=== PATIENT | female | born 1930 | race Caucasian/White ===

== ENCOUNTER 2017-07-16 17:39 | Emergency (ER) | payer MEDICARE ==
[~2017-07-16] VITALS: Ht 160 cm; Wt 64.4 kg
[~2017-07-16 17:39] MED LIST: ALPR0.25 PO; CALC500T21 OR; CHOL1CAP6 OR; CLON.1 PO; CROM5.2S; LEVO100T4 PO; LORTA5 PO; OMEP20CA5 PO; SERT-129 PO; TOVI8TAB PO; ULTR50TA PO; ZOCO40TA PO
[2017-07-16 17:46] VITALS: BP 137/65; PULSE 71; RESP 18; TEMP 97.8; O2SAT 95
[2017-07-16] MEDS ORDERED: PRIL20TA2 PO (18:31)
[2017-07-16] MEDS ORDERED: SIMV20TA PO (18:31)
[2017-07-16] MEDS ORDERED: LEVO100T5 PO (18:31)
[2017-07-16] MEDS ORDERED: TOVI4TAB PO (18:31)
[2017-07-16] MEDS ORDERED: TRAM50TA PO (18:31)
[2017-07-16] MEDS ORDERED: SERT-129 PO (18:31)
[2017-07-16] MEDS ORDERED: VITA100036 PO (18:31)
--- NOTE | 2017-07-16 19:43 | RADRPT ---
EXAM DATE/TIME: 07/16/2017 19:11 [facility] COMPARISON: No previous studies available for comparison. EXTERNAL COMPARISON : [facility] INDICATIONS : Right arm pain. Post fall. MEDICAL HISTORY : None. SURGICAL HISTORY : None. ENCOUNTER: Initial ACUITY: 1 day PAIN SCORE: 8/10 LOCATION: Right humerus. FINDINGS: Two view examination of the right humerus demonstrates no evidence of fracture or dislocation. Bony mineralization is normal. The soft tissue structures are intact. CONCLUSION: Intact right humerus. Robert Medina MD on July 16, 2017 at 19:41 Board Certified Radiologist. This report was verified electronically.
--- NOTE | 2017-07-16 19:46 | RADRPT ---
EXAM DATE/TIME: 07/16/2017 19:18 [facility] COMPARISON: No previous studies available for comparison. EXTERNAL COMPARISON : [facility] INDICATIONS : Right shoulder pain. Post fall. MEDICAL HISTORY : None. SURGICAL HISTORY : None. ENCOUNTER: Initial ACUITY: 1 day PAIN SCORE: 8/10 LOCATION: Right shoulder. FINDINGS: No acute fracture is demonstrated of the right shoulder. There is mild acromioclavicular joint and gl enohumeral joint osteoarthritis. Increased density is seen in the subacromial compatible with calcifi c tendinitis/bursitis. CONCLUSION: 1. No fracture or subluxation of the right shoulder. 2. Mild osteoarthritis. 3. Calcific tendinitis/bursitis of the cuff. Robert Medina MD on July 16, 2017 at 19:43 Board Certified Radiologist. This report was verified electronically.
--- NOTE | 2017-07-16 20:03 | PD ---
HPI Chief Complaint: Pain: Acute or Chronic Time Seen by Provider: 18:55 Travel History International Travel<30 days: No Contact w/Intl Traveler<30days: No Traveled to known affect area: No History of Present Illness HPI 87 year-old female with a history of chronic right shoulder pain presents to the emergency room for evaluation of right shoulder and upper arm pain after falling earlier today. Patient fell out of her chair onto her right arm. She fell onto concrete but denies hitting her head or loss of consciousness. She had immediate pain but it is difficult to localize. States it is mostly in the proximal humerus but radiates into her entire upper arm. She has not taken anything for pain. She denies paresthesias. Patient reports earlier today, before the fall, she went for an MRI of her shoulder for chronic bursitis. 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 Dvce: Yes Kidney Stones: No Medical other: Yes Musculoskeletal: Yes Neurologic: Yes ( TREMORS) Psychiatric: Yes Reproductive: No Respiratory: Yes (PNEUMONIA, ASTHMA) Immunizations Current: Yes Migraines: Yes Myocardial Infarction: No Pneumonia: Yes Radiation Therapy: No Seizures: No Sleep Apnea: No Thyroid Disease: Yes (NODULES) Ulcer: No Tetanus Vaccination: Unknown Influenza Vaccination: Yes ?: Not Menopausal: Yes Past Surgical History Abdominal Surgery: Yes (APPENDECTOMY) Appendectomy: Yes Body Medical Devices: HARDWARE RIGHT WRIST Section: Yes (TIMES 3) Cholecystectomy: Yes Eye Surgery: Yes (BILATERAL CATARACT EXTRACTION) Gynecologic Surgery: Yes (HYSTERECTOMY 1982, C SECTIION X3) Hysterectomy: Yes Joint Replacement: Yes (LEFT KNEE) Tonsillectomy: Yes Other Surgery: Yes (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 ) Social History Alcohol Use: No Tobacco Use: No (QUIT 50 YEARS AGO ) Substance Use: No Allergies-Medications (Allergen,Severity, Reaction): Coded Allergies: codeine (Unverified Allergy, Severe, PT DENIES, 07/16/17) Uncoded Allergies: MUSCLE RELAXANTS (Adverse Reaction, Intermediate, NAUSEA/VOMITING/DIZZY, ) Reported Meds & Prescriptions Reported Meds & Active Scripts Active Reported Tramadol (Tramadol HCl) 50 Mg Tab 50 Mg PO Q6H PRN Simvastatin 20 Mg Tab 20 Mg PO DAILY Sertraline (Sertraline HCl) 100 Mg Tab 1.5 Tab PO DAILY Prilosec (Omeprazole Magnesium) 20 Mg Tab 1 Tab PO DAILY Levothyroxine (Levothyroxine Sodium) 100 Mcg Tab 100 Mcg PO DAILY Toviaz ER (Fesoterodine Fumarate) 4 mg Georgette 4 Mg PO DAILY Vitamin D3 (Cholecalciferol) 1,000 Unit Cap 1,000 Units PO DAILY Review of Systems Except as stated in HPI: all other systems reviewed are Neg Physical Exam Narrative GENERAL: Well-nourished, well-developed acute distress. Afebrile. Ambulatory. SKIN: Focused skin assessment warm/dry. Superficial abrasion over the right lateral elbow and right shoulder. HEAD: Normocephalic. EYES: No scleral icterus. No injection or drainage. NECK: Supple, trachea midline. No JVD or lymphadenopathy. CARDIOVASCULAR: Regular rate and rhythm without murmurs, gallops, or rubs. RESPIRATORY: Breath sounds equal bilaterally. No accessory muscle use. MUSCULOSKELETAL: No cyanosis. No obvious, acute edema. 2+ radial pulse. Limited range of motion of the shoulder secondary to pain. 40 motion of the elbow, wrist, and hand. No bony tenderness to palpation of the forearm. Minimal tenderness to palpation of the humerus. Radial, ulnar, and median nerves intact. Data Data Last Documented VS Vital Signs Date Time Temp Pulse Resp B/P (MAP) Pulse Ox O2 Delivery O2 Flow Rate FiO2 07/16/17 18:32 (89) 07/16/17 17:46 97.8 71 18 95 Orders Orders Humerus (Min 2vws) (07/16/17 ) Shoulder, Complete (>2vws) (07/16/17 ) [facility] Medical Decision Making Medical Screen Exam Complete: Yes Emergency Medical Condition: Yes Medical Record Reviewed: Yes Differential Diagnosis Strain, sprain, fracture, dislocation, contusion, abrasion Narrative Course 87-year-old female presents to the emergency room for evaluation of right shoulder pain after falling out of her chair earlier today. Patient felt to the right landed on her arm. She denies any other injuries. Since then she has had pain in the proximal humerus with radiation down the right upper arm. Pain also radiates into her scapula. It is worse with range of motion. Right upper extremity is neurovascularly intact with 2+ radial pulse. Radial, ulnar, and median nerves intact. No bony tenderness to palpation of the forearm, wrist , or humerus. X-ray of the shoulder and humerus are negative for acute bony abnormality. Patient is aware of chronic findings. Likely contusion or shoulder strain. Cut also be acute exacerbation of bursitis given trauma. Patient will be discharged with instructions to follow up with her orthopedic surgeon, Dr. Schulte, or return for worsening symptoms. She understands and agrees to plan. Diagnosis Primary Impression: Right shoulder injury Qualified Codes: S49.91XA - Unspecified injury of right shoulder and upper arm , initial encounter Referrals: Orthopaedic Surgeon Additional Instructions: Rest and drink plenty of fluids. Take Tylenol as directed, as needed for pain. Apply ice to the affected area for 20 minutes at a time, as needed for pain and swelling. Follow-up with a primary care physician. Return to the emergency room for worsening symptoms. Disposition: 01 DISCHARGE HOME Condition: Stable Liliana Saleh Jul 16, 2017 20:03
== END 2017-07-16 20:16 | disposition home or self-care (01) ==
LOC: PHEFT 17:39
DX: S49.91XA Unspecified injury of right shoulder and upper arm, initial encounter (principal); M79.621 Pain in right upper arm; E07.9 Disorder of thyroid, unspecified; E78.00 Pure hypercholesterolemia, unspecified; W07.XXXA Fall from chair, initial encounter; Z87.39 Personal history of other diseases of the musculoskeletal system and connective tissue; Z87.09 Personal history of other diseases of the respiratory system; Z86.2 Personal history of diseases of the blood and blood-forming organs and certain disorders involving the immune mechanism; Z86.59 Personal history of other mental and behavioral disorders; Z85.828 Personal history of other malignant neoplasm of skin; Z86.79 Personal history of other diseases of the circulatory system; Z87.19 Personal history of other diseases of the digestive system; Z87.448 Personal history of other diseases of urinary system; Z86.69 Personal history of other diseases of the nervous system and sense organs
CPT/HCPCS: 73030; 73060; 99283

== ENCOUNTER 2017-10-08 22:45 | Emergency (ER) | payer MEDICARE ==
[~2017-10-08] VITALS: Ht 162.6 cm; Wt 65.0 kg
[~2017-10-08 22:45] MED LIST changes: -ALPR0.25 PO; -CALC500T21 OR; +CHOL10008 PO; -CHOL1CAP6 OR; -CLON.1 PO; -CROM5.2S; -LEVO100T4 PO; +LEVO100T5 PO; -LORTA5 PO; -OMEP20CA5 PO; +PRIL20TA2 PO; +SIMV20TA PO; +TOVI4TAB PO; -TOVI8TAB PO; +TRAM50TA PO; -ULTR50TA PO; -ZOCO40TA PO
[2017-10-08 22:48] VITALS: BP 135/70; PULSE 78; RESP 18; TEMP 97.9; O2SAT 97
[2017-10-08] MEDS ORDERED: LATA0.002 EACH EYE (23:24)
--- NOTE | 2017-10-08 23:51 | PD ---
HPI Chief Complaint: Eye Problems/Injury Time Seen by Provider: 23:44 Travel History International Travel<30 days: No Contact w/Intl Traveler<30days: No Traveled to known affect area: No History of Present Illness HPI The patient is an 87-year-old female that at 10:20 PM tonight got some arthritis lotion in her right eye. Her irrigated out her right eye copiously and she feels much better now. She wants to go home. Visual acuity shows 20/25 in the right eye and 20/40 in the left eye. PFSH Past Medical History Arthritis: Yes Asthma: Yes Autoimmune Disease: Yes Anxiety: Yes Depression: No Heart Rhythm Problems: No Cancer: Yes (SKIN) Cardiovascular Problems: Yes (HTN ) High Cholesterol: Yes Chemotherapy: No Chest Pain: No Congestive Heart Failure: No COPD: No Cerebrovascular Accident: Yes Diabetes: No Diminished Hearing: No Endocrine: Yes Gastrointestinal Disorders: Yes (REFLUX) GERD: Yes Glaucoma: Yes Genitourinary: Yes Headaches: No Hepatitis: No Hiatal Hernia: No Hypertension: No Immune Disorder: Yes (AUTOIMMUNE HEPATITIS/LUPUS) Implanted Vascular Access Dvce: Yes Kidney Stones: No Medical other: Yes Musculoskeletal: Yes Neurologic: Yes ( TREMORS) Psychiatric: Yes Reproductive: No Respiratory: Yes (PNEUMONIA, ASTHMA) Immunizations Current: Yes Migraines: Yes Myocardial Infarction: No Pneumonia: Yes Radiation Therapy: No Seizures: No Sleep Apnea: No Thyroid Disease: Yes (NODULES) Ulcer: No ?: Not Menopausal: Yes Past Surgical History Abdominal Surgery: Yes (APPENDECTOMY) Appendectomy: Yes Body Medical Devices: HARDWARE RIGHT WRIST Section: Yes (TIMES 3) Cholecystectomy: Yes Eye Surgery: Yes (BILATERAL CATARACT EXTRACTION) Gynecologic Surgery: Yes (HYSTERECTOMY 1982, C SECTIION X3) Hysterectomy: Yes (Complete) Joint Replacement: Yes (LEFT KNEE) Tonsillectomy: Yes Other Surgery: Yes (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 ) Social History Alcohol Use: No Tobacco Use: No (QUIT 50 YEARS AGO ) Substance Use: No Allergies-Medications (Allergen,Severity, Reaction): Coded Allergies: codeine (Verified Allergy, Severe, PT DENIES, 10/08/17) ciprofloxacin (Verified Allergy, Mild, Diarrhea, 10/08/17) Patient states she experienced diarrhea immediately after administration of medication Uncoded Allergies: MUSCLE RELAXANTS (Adverse Reaction, Intermediate, NAUSEA/VOMITING/DIZZY, ) Reported Meds & Prescriptions Reported Meds & Active Scripts Active Reported Latanoprost Opth Drops (Latanoprost) 0.005% Drops 1 Drop EACH EYE HS Refrigerate until opened. Simvastatin 20 Mg Tab 20 Mg PO DAILY Sertraline (Sertraline HCl) 100 Mg Tab 1.5 Tab PO DAILY Prilosec (Omeprazole Magnesium) 20 Mg Tab 1 Tab PO DAILY Levothyroxine (Levothyroxine Sodium) 100 Mcg Tab 100 Mcg PO DAILY Toviaz ER (Fesoterodine Fumarate) 4 mg Georgette 4 Mg PO DAILY Vitamin D3 (Cholecalciferol) 1,000 Unit Cap 1,000 Units PO DAILY Physical Exam Narrative GENERAL: The patient is alert, oriented 3 in minimal apparent distress with her right eye discomfort. Her vital signs are normal. SKIN: Focused skin assessment warm/dry. HEAD: Atraumatic. Normocephalic. EYES: Pupils equal and round. No scleral icterus. No injection or drainage. Visual acuity is 20/25 in the right eye and 20/40 in the left eye. Extraocular movements are normal. Flouriscein staining reveals no corneal uptake. ENT: No nasal bleeding or discharge. Mucous membranes pink and moist. NECK: Trachea midline. No JVD. CARDIOVASCULAR: Regular rate and rhythm. No murmur appreciated. RESPIRATORY: No accessory muscle use. Clear to auscultation. Breath sounds equal bilaterally. GASTROINTESTINAL: Abdomen soft, non-tender, nondistended. Hepatic and splenic margins not palpable. MUSCULOSKELETAL: No obvious deformities. No clubbing. No cyanosis. No edema. NEUROLOGICAL: Awake and alert. No obvious cranial nerve deficits. Motor grossly within normal limits. Normal speech. PSYCHIATRIC: Appropriate mood and affect; insight and judgment normal. Data Data Last Documented VS Vital Signs Date Time Temp Pulse Resp B/P (MAP) Pulse Ox O2 Delivery O2 Flow Rate FiO2 10/08/17 23:11 18 10/08/17 22:48 97.9 78 135/70 (91) 97 MDM Medical Decision Making Medical Screen Exam Complete: Yes Emergency Medical Condition: Yes Medical Record Reviewed: Yes Differential Diagnosis Corneal abrasion, chemical burn cornea, minor irritation of cornea, conjunctival irritation Narrative Course The patient has a very minor chemical burn which has now resolved. She was irrigated at home and irrigated here and she will follow-up with her furniture salesperson tomorrow if she is still symptomatic. Diagnosis Primary Impression: Corneal chemical burn Additional Instructions: If you are still symptomatic tomorrow, follow-up with your furniture salesperson. Otherwise he is not going to do anything. Make sure you wash your hands and do not put your fingers around her eyes after using this arthritis lotion. Med/Other Pt SpecificInfo: No Change to Meds Disposition: 01 DISCHARGE HOME Condition: Stable Laen Rodrigues MD Oct 08, 2017 23:50
[2017-10-09 00:11] VITALS: BP 143/71
== END 2017-10-09 00:20 | disposition home or self-care (01) ==
LOC: PHED 22:45
DX: T26.61XA Corrosion of cornea and conjunctival sac, right eye, initial encounter (principal); M19.90 Unspecified osteoarthritis, unspecified site; J45.909 Unspecified asthma, uncomplicated; I10 Essential (primary) hypertension; M32.9 Systemic lupus erythematosus, unspecified; X58.XXXA Exposure to other specified factors, initial encounter
CPT/HCPCS: 99283

== ENCOUNTER → 2018-04-30 | Outpatient (CLI) | payer MEDICARE ==
[~2018-04-30] MED LIST changes: +LATA0.002 EACH EYE; -TRAM50TA PO
--- NOTE | 2018-04-30 11:42 | RADRPT ---
EXAM DATE: 04/30/2018 11:19 AM EDT AGE/SEX: 88 years / Female INDICATIONS: Dysphagia CLINICAL DATA: This is the patient's initial encounter. Patient reports that signs and symptoms have been present for 1 day and indicates a pain score of 0/10. MEDICAL/SURGICAL HISTORY: . . COMPARISON: [place], [place] BARIUM SWALLOW, 04/10/2018. . FLUORO TIME: 1.1min IMAGE COUNT: 0 FINDINGS: A modified barium swallow was performed with speech pathology. Patient was given a variety of liquids to swallow. There is transient penetration of the supraglottic larynx with thin barium only. No trac heal aspiration occurs. Thick barium, applesauce-thick barium and barium-coated cracker passed freely into the esophagus without penetration, aspiration or pooling. The oral phase is normal without manolo yed posterior propulsion. For a full detailed report, see report by the speech pathologist. CONCLUSION: Penetration of the supraglottic larynx with thin barium only without tracheal aspiration. Electronically signed by: Segundo Alfaro MD 04/30/2018 11:41 AM EDT
== END ==
LOC: HRAD 10:53
PROVIDERS: ATTEND Internal Medicine Gastroenterology
DX: R13.10 Dysphagia, unspecified (principal)
CPT/HCPCS: 74230; 92611; G8996; G8997; G8998